=== PATIENT | male | born 1985 | race Caucasian/White ===

== ENCOUNTER 2017-10-20 18:03 | Outpatient (CLI) | payer SELFPAY ==
--- NOTE | 2017-10-20 21:03 | Ultrasound Preliminary Report ---
Exam: US TESTICLE W/DOPPLER IMPRESSION: Hypoechoic heterogeneous intratesticular mass enlarging the left testicle with hydrocele and varicocele noted. [facility] The call report notification system was initiated by Dr. Vipul Boothe at 20:58 hrs on 10/20/17. The above findings were discussed with Dr. Garcia by Dr. Vipul Boothe at 21:01 hrs on 10/20/17. SITE ID: [id number]
--- NOTE | 2017-10-20 21:06 | Ultrasound Report ---
EXAM: SCROTAL ULTRASOUND EXAM DATE: 10/20/2017 07:54 PM. CLINICAL HISTORY: Left testicular pain and swelling. COMPARISON: None. TECHNIQUE: Real-time scanning was performed with static images obtained. Both color-flow and Doppler spectral analysis were utilized. FINDINGS: Right: Testis: 5.5 x 2.8 x 2.9 cm. Normal size and echotexture. No mass, calcification, or abnormal blood fl ow. Epididymis: 1.4 x 1.0 x 1.3 cm. Normal size and echotexture. No mass or abnormal blood flow. Small cy st 3 mm in diameter. Hydrocele: None. Varicocele: None. Left: Testis: 5.4 x 3.3 x 4.5 cm. Enlarged with hypoechoic heterogeneous internal 3.2 x 2.4 x 2.9 cm mass. Epididymis: cm. Normal size and echotexture. No mass or abnormal blood flow. Hydrocele: Yes. Varicocele: Yes. IMPRESSION: Hypoechoic heterogeneous intratesticular mass enlarging the left testicle with hydrocele and varicocele noted. [facility] The call report notification system was initiated by Dr. Vipul Boothe at 20:58 hrs on 10/20/17. The above findings were discussed with Dr. Garcia by Dr. Vipul Boothe at 21:01 hrs on 10/20/17. Referring Provider Line: [phone] SITE ID: [id number]
== END 2017-10-20 18:04 | disposition home or self-care (01) ==
LOC: DI 18:03
PROVIDERS: ATTEND Specialist
DX: N50.9 Disorder of male genital organs, unspecified (principal); N43.3 Hydrocele, unspecified; I86.1 Scrotal varices
CPT/HCPCS: 76870; 93975